=== PATIENT | male | born 1980 | race Caucasian/White ===

== ENCOUNTER 2024-07-17 16:24 | Emergency (ER) | payer BC, SELFPAY ==
--- NOTE | ~2024-07-17 | XR_ITS ---
XR hand LT min 3V DATE: 07/17/2024 16:46 INDICATION: Fifth digit pain TECHNIQUE: 4 views COMPARISON: None FINDINGS: There is a transverse fracture of the proximal shaft of the proximal phalanx of the fifth d igit with mild impaction and approximately 25% apex anterior angulation. No other fracture or dislocation, periosteal reaction or bone destruction is detected. IMPRESSION: Fracture of the proximal shaft of the proximal phalanx of the fifth digit Reviewed, dictated and finalized at location A.
--- NOTE | ~2024-07-17 | XR_ITS ---
XR hand LT min 3V DATE: 07/17/2024 18:32 INDICATION: Fracture of proximal phalanx of fifth finger; postreduction examination TECHNIQUE: 4 views COMPARISON: 07/17/2024 prereduction radiographs FINDINGS: Comminuted fracture of the base of proximal shaft of the proximal phalanx of the fifth digi t is noted. There is one cortical width anterior displacement and approximately 15 degrees apex anter ior angulation. IMPRESSION: 1 cortical width anterior displacement and 15 degrees apex anterior angulation at fractur e of base and proximal shaft of proximal phalanx of fifth digit Reviewed, dictated and finalized at location A. IMPRESSION: 1 cortical width anterior displacement and 15 degrees apex anterior angulation at fracture of base and proximal shaft of proximal phalanx of fifth digit
--- OUTSIDE RECORDS SUMMARY | 2024-07-17 16:26 | XMS_ITS | Encounter Summary ---
Author Organization [facility] Address [address] [facility] [place] [address] Phone Care Team Providers Care Truck Driving Name Role Phone Sarahy Geller APRN, CNP Primary Care P rovider Reason for Visit * Reason Comments Medication Refill Encounter Details Date Type Department Care Team (Late Contact Info) Description 10/06/2023 Refill [facility] [address] [place] [address] Sarahy Geller APRN, CNP [address] [place] [address] Medication Refill Social History Tobacco Use Types Packs/Day Years Used Date Smoking Tobacco: Never Smokeless Tobacco: Never Alcohol Use Standard Drinks/Week Comments Yes 0 (1 standard drink = 0.6 oz pur e alcohol) One to two times per week Sex and Gender Information Value Date Recorded Sex Assigned at Not on file Legal Sex Male 11:54 PM CDT Gender Identity Not on file Sexual Orientation Not on file documented as of this encounter Plan of Treatment Upcoming Encounters Date Type Department Care Team (Late Contact Info) Description 07/26/2024 10:00 AM CDT Office Visit [facility] - Primary Care - [place] [address] [place] [id number] Sarahy Geller APRN, VOCATIONAL TRAINING DIRECTOR [address] [place] [address] documented as of this encounter Visit Diagnoses Diagnosis Essential hypertension Unspecified essential hypertension documented in this encounter Care Teams Truck Driving Relationship Specialty Start Date End Date Sarahy Geller APRN, VOCATIONAL TRAINING DIRECTOR [address] [place] [address] PCP - General Advanced Practice Nurse 06/06/22 documented as of this encounter
--- OUTSIDE RECORDS SUMMARY | 2024-07-17 16:26 | XMS_ITS | Clinical Summary ---
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 Overview (05/15/2022): Note: Unchanged Encounters Date Type Department Care Team Description 07/13/2024 10:10 AM CDT Lab [facility] - Primary Care - [place] [address] [place] [id number] [facility] Discharge Disposition: Discharged to home or Selfcare 07/13/2024 Travel from Last 3 Months Immunizations Immunization Administration Dates Next Due TDAP Vaccine 01/11/2024 Social History Tobacco Use Types Packs/Day Years Used Date Smoking Tobacco: Never Smokeless Tobacco: Never Tobacco Cessation:Counseling Given: Not Answered Alcohol Use Standard Drinks/Week Comments Yes 0 (1 standard drink = 0.6 oz pur e alcohol) One to two times per week PHQ-2 Answer Date Recorded Total Score - Questions 1-9 0 12/26 Sex and Gender Information Value Date Recorded Sex Assigned at Not on file Legal Sex Male 11:54 PM CDT Gender Identity Not on file Sexual Orientation Not on file Last Filed Vital Signs Vital Sign Reading Time Taken Comments Blood Pressure 126/86 01/11/2024 11:19 AM CDT Pulse 79 01/11/2024 11:19 AM CDT Temperature 36.2 C (97.1 F) 01/11/2024 11:19 AM CDT Respiratory Rate 16 01/11/2024 11:19 AM CDT Oxygen Saturation 99% 01/11/2024 11:19 AM CDT Inhaled Oxygen Concentration - - Weight 90.7 kg (200 lb) 01/11/2024 11:19 AM CDT Height 175.3 cm (5' 9 ) 01/11/2024 11:19 AM CDT Body Mass Index 29.53 01/11/2024 11:19 AM CDT Plan of Treatment Upcoming Encounters Date Type Department Care Team (Late st Contact Info) Description 07/26/2024 10:00 AM CDT Office Visit [facility] - Primary Care - [place] [address] [place] [address] Sarahy Geller APRN, ANIMAL TRAINER [address] [place] [address] Health Maintenance Due Date Last Done Comments Colonoscopy 07/08/2023 Colorectal Cancer Screening 07/08/2023 SARS-COV-2 Immunization ( season) 2023 Influenza Immunization (#1) 2024 Postponed from 12/27/2023 (Patient Temporarily Declines) Td Immunization Every 10 Yea rs (Adults With 1 Tdap) 01/10/2034 01/11/2024 Respiratory Syncytial Virus (RSV) Immunization (Adult) (1 - 1-dose 75+ series) 2053 Hepatitis C Virus (HCV) Screening Completed 07/01/2023 DTaP/Tdap/Td Immunization Discontinued 01/11/2024 TdaP Immunization Discontinued 01/11/2024 Hepatitis B Immunization Discontinued Meningococcal Immunization (ACWY) Aged Out No longer eligible b ased on patient's age to complete this topic Pneumococcal Immunization Combined Aged Out No longer eligible b ased on patient's age to complete this topic Rotavirus Immunization Aged Out No lo nger eligible based on patient's age to complete this topic Procedures Procedure Name Priority Date/Time Associated Diagnosis Comments CBC WITH AUTO DIFFERENTIAL Routine 07/13/2024 10:02 AM CDT [facility] (Adult) HEMOGLOBIN A1C W/ ESTIMATED GLUCOSE Routine 07/13/2024 10:02 AM CDT [facility] (Adult) LIPID PANEL Routine 07/13/2024 10:02 AM CDT [facility] (Adult) CMP (COMPREHENSIVE METABOLIC PANEL) Routine 07/13/2024 10:02 AM CDT [facility] (Adult) COMPLETE BLOOD COUNT (CBC) WITH DIFF Routine 07/13/2024 10:02 AM CDT [facility] (Adult) HEPATITIS C ANTIBODY Routine 07/01/2023 10:43 AM TALENT SCOUT Preventative health care (Adult) from Last 3 Months or Most Recently Relevant to Health Maintenance Results * HEMOGLOBIN A1C W/ ESTIMATED GLUCOSE (07/13/2024 10:02 AM CDT) HGB-A1C 4.8 4.0 - 6.0 % 07/13/2024 1:01 PM CDT [facility] Est Average Glucose 91.1 mg/dL 07/13/2024 1:01 PM CDT [facility] Blood Venipuncture / Unknown 07/13/2024 10:02 AM CDT 07/13/2024 10:02 AM CDT Narrative [facility] - 07/13/2024 1:01 PM CDT HEMOGLOBIN A1C: DIABETIC PATIENTS: WELL-CONTROLLED: 6.2 - 7.0 INTERMEDIATE WELL-CONTROLLED: 7.0 - 9.0 POORLY-CONTROLLED: >9.0 Specimens containing greater than 5% of Hemoglobin F may result in lower than expected % HbA1C results. us Sarahy Geller APRN, CNP CHEMISTRY ORDER RIKKI Final Result [facility] [address] [place] [address] * (ABNORMAL) CBC WITH AUTO DIFFERENTIAL (07/13/2024 10:02 AM CDT) WBC 6.52 4.00 - 12.00 10(3)/mcL 07/13/2024 12:36 PM CDT [facility] RBC 5.08 4.40 - 5.80 10(6)/mcL 07/13/2024 12:36 PM CDT [facility] HEMOGLOBIN (HGB) 16.1 13.0 - 16.5 g/dL 07/13/2024 12:36 PM CDT [facility] HEMATOCRIT (HCT) 49.3 38.0 - 50.0 % 07/13/2024 12:36 PM CDT [facility] MCV 97.0(H) 82.0 - 96.0 fL 07/13/2024 12:36 PM CDT [facility] MCH 31.7 26.0 - 32.0 pg 07/13/2024 12:36 PM CDT [facility] MCHC 32.7 31.0 - 36.0 g/dL 07/13/2024 12:36 PM CDT [facility] PLATELET COUNT 298 140 - 440 10(3)/mcL 07/13/2024 12:36 PM CDT [facility] RDW 12.2 11.8 - 15.5 % 07/13/2024 12:36 PM CDT [facility] MPV 9.5 8.0 - 12.6 fL 07/13/2024 12:36 PM CDT [facility] NEUTROPHILS 58.2 40.0 - 68.0 % 07/13/2024 12:36 PM CDT [facility] LYMPHOCYTES 30.1 19.0 - 49.0 % 07/13/2024 12:36 PM CDT [facility] MONOCYTES 9.0 3.0 - 13.0 % 07/13/2024 12:36 PM CDT [facility] EOSINOPHILS 1.5 0.0 - 8.0 % 07/13/2024 12:36 PM CDT [facility] BASOPHILS 1.2(H) 0.0 - 1.0 % 07/13/2024 12:36 PM CDT [facility] ABSOLUTE NEUTROPHILS 3.79 1.40 - 5.30 10(3)/mcL 07/13/2024 12:36 PM CDT [facility] ABSOLUTE LYMPHOCYTES 1.96 0.90 - 3.30 10(3)/mcL 07/13/2024 12:36 PM CDT [facility] ABSOLUTE MONOCYTES 0.59 0.10 - 0.90 10(3)/[facility] 07/13/2024 12:36 PM CDT [facility] ABSOLUTE EOSINOPHIL 0.10 0.00 - 0.50 10(3)/[facility] 07/13/2024 12:36 PM CDT [facility] ABSOLUTE BASOPHILS 0.08 0.00 - 0.10 10(3)/[facility] 07/13/2024 12:36 PM CDT [facility] NRBC PER 100 WBC 0 07/14/19 25 12:36 PM CDT [facility] Blood Venipuncture / Unknown 07/13/2024 10:02 AM CDT 07/13/2024 10:02 AM CDT us Sarahy Geller APRN, CHRISTINA HEMATOLOGY PACO PICKARD Final Result [facility] [address] [place] [address] * LIPID PANEL (07/13/2024 10:02 AM CDT) [facility] Signature CHOLESTEROL 167 <200 mg/dL 07/13/2024 1:19 PM CDT [facility] TRIGLYCERIDES 94 <150 mg/dL 07/13/2024 1:19 PM CDT [facility] HDL CHOLESTEROL 59 >40 mg/dL 1:19 PM CDT [facility] LDL 89 <130 mg/dL 07/13/2024 1:19 PM CDT [facility] VLDL 19 10 - 50 mg/dL 07/13/2024 1:19 PM CDT [facility] CHOL/HDL RATIO 2.8 0.0 - 4.4 07/13/2024 1:19 PM CDT [facility] NON-HDL CHOLESTEROL 108 <130 mg/dL 07/13/2024 1:19 PM CDT [facility] IS THE PATIENT REQUIRED TO BE FASTING? Yes 07/13/2024 1:19 PM CDT [facility] HAS THE PATIENT BEEN FASTING? Yes 07/13/2024 1:19 PM CDT [facility] Blood Venipuncture / Unknown 07/13/2024 10:02 AM CDT 07/13/2024 10:02 AM CDT Sarahy Geller APRN, CNP CHEMISTRY ORDER RIKKI Final Result [facility] [address] [place] [address] * (ABNORMAL) CMP (COMPREHENSIVE METABOLIC PANEL) (07/13/2024 10:02 AM CDT) SODIUM 141 136 - 145 mmol/L 07/13/2024 1:19 PM CDT [facility] POTASSIUM 3.7 3.5 - 5.1 mmol/L 07/13/2024 1:19 PM CDT [facility] CHLORIDE 105 98 - 107 mmol/L 07/13/2024 1:19 PM CDT [facility] CO2, VENOUS 26 22 - 30 mmol/L 07/13/2024 1:19 PM CDT [facility] ANION GAP 13.7 <18.0 mmol/L 07/13/2024 1:19 PM CDT [facility] GLUCOSE 94 70 - 99 mg/dL 07/13/2024 1:19 PM CDT [facility] BUN 12 9 - 21 mg/dL 07/13/2024 1:19 PM CDT [facility] CREATININE, BLOOD 1.05 0.70 - 1.30 mg/dL 07/13/2024 1:19 PM CDT [facility] BUN/CREATININE RATIO 11(L) 12 - 20 ratio 07/13/2024 1:19 PM T [facility] TOTAL PROTEIN 6.9 6.0 - 8.0 g/dL 07/13/2024 1:19 PM T [facility] ALBUMIN 4.3 3.5 - 5.0 g/dL 07/13/2024 1:19 PM CDT [facility] A/G RATIO 1.7 1.0 - 2.2 07/13/2024 1:19 PM T [facility] CALCIUM 9.1 8.7 - 10.5 mg/dL 07/13/2024 1:19 PM T [facility] T BILI 0.8 0.2 - 1.2 mg/dL 07/13/2024 1:19 PM T [facility] SGOT (AST) 29 <43 U/L 07/13/2024 1:19 PM CDT [facility] SGPT (ALT) 32 <56 U/L 07/13/2024 1:19 PM CDT [facility] ALKALINE PHOSPHATASE 56 40 - 150 U/L 07/13/2024 1:19 PM T [facility] IS THE PATIENT REQUIRED TO BE FASTING? No 07/13/2024 1:19 PM CDT [facility] GFR, ESTIMATED >60 >=60 07/13/2024 1:19 PM CDT [facility] Comment: Creatinine Clearance is the preferred criteria for selecting drug dose adjustments in renally impaired patients. The GFR is provided as additional pertinent clinical information. GFR is reported in mL/min/1.73 sq m. Calculation based on the Chronic Kidney Disease Epidemiology Collaboration (CKD- EPI) equation refit without adjustment for race. GFR, EST. >60 >=60 025 1:19 PM CDT [facility] GFR, EST. NONAFRICAN >60 >=60 07/13/2024 1:19 PM CDT [facility] Blood Venipuncture / Unknown 07/13/2024 10:02 AM CDT 07/13/2024 10:02 AM CDT Sarahy Geller APRN, ANIMAL TRAINER CHEMISTRY ORDER RIKKI Final Result [facility] [address] [place] [address] * HEPATITIS C ANTIBODY (07/01/2023 10:43 AM TALENT SCOUT) hepatitis C antibody 0.16 <1 S/CO [facility] ARCH [id number] A 07/01/2023 11:53 PM TALENT SCOUT [facility] Comment: Signal/Cutoff ratio < 0.79 is Nondetected Signal/Cutoff ratio 0.80-0.99 is Grayzone Signal/Cutoff ratio > 0.99 is Detected Supplemental assays are recommended if signal/cutoff ratio is >/=1.00. Signal/cutoff ratio result >/= 5.00 is 97% predictive of positivity for recombinant immunoblot assay (RIBA) and will be reported to the [place] Department of Public Health as required. Blood Venipuncture / Unknown 07/01/2023 10:43 AM TALENT SCOUT 07/01/2023 10:43 AM TALENT SCOUT Sarahy Geller SOLAR ENERGY TECHNICIAN, ANIMAL TRAINER CHEMISTRY ORDER RIKKI Final Result [facility] [address] [place] [address], from Last 3 Months or Most Recently Relevant to Health Maintenance Insurance [facility] Care Teams Reel Stripper Relationship Specialty Start Date End Date Sarahy Geller APRN, ANIMAL TRAINER [address] [place] [address] PCP - General Advanced Practice Nurse 06/06/22
--- OUTSIDE RECORDS SUMMARY | 2024-07-17 16:26 | XMS_ITS ---
Care Plan - [facility] Created on: July 17, 2024 REY VONDA Titus : 1980 Sex: Male Author Organization [facility] Address [address] [place] [address] Phone Care Team Providers Care Detention Officer Name Role Phone ROSA HOOPER, LESLIE Spicer Primary Care Provider [phone]
--- OUTSIDE RECORDS SUMMARY | 2024-07-17 16:26 | XMS_ITS | Clinical Summary ---
Author Organization [facility] Address [address] [place] [address] Phone Care Team Providers Care Csw Name Role Phone ROSA HOOPER, LESLIE Spicer Primary Care Provider [phone] Reason for Visit and Chief Complaint SICK VISIT Problems Includes: Problems addressed during this encounter and other active Problems All Visits Onset Date Resolved Date Provider Condition S tatus Nicotine Dependence Cigarettes in Remission 07/27/2017 LESLIE LEE MD Active Last Documented On 07/27/2017 1:15PM ; [facility] Note: Unchanged - 1PPD 0905-2315 QUIT 20 07 Renal Sclerosis 05/09/2010 LESLIE PHILIPPE MD Active Last Documented On 05/09/2010 9:54PM ; [facility] Note: Unchanged Plan of Treatment No Plan of Treatment Recorded Assessments Includes: Assessments from this encounter No Assessments Recorded Medical Equipment - Implanted Devices Includes: Current Devices No Medical Equipment Recorded Medications Includes: Medications discussed during this encounter and other current Medications Current Medications (continue as prescribed) Cyclobenzaprine HCl 10MG Ora l Tablet 04/14/2018 Provider: LESLIE LEE MD Diagnosis: Muscle spasm of back as directed 1/2 - 1 TAB PO U P TO TID PRN MUSCLE SPASM Last Documented On 04/14/2018 9:45AM By FADUMO LEE MD ; [facility] Hydrocodone-Acetaminophen 5-325MG Oral Tablet 04/10/20 18 Provider: Diagnosis: Last Documented On 04/14/2018 9:13AM By ESTUARDO GONZALEZ ; [facility] Meloxicam 15MG Oral Tablet 04/10/2018 Provider: Diagnosis: Last Documented On 04/14/2018 9:13AM By ESTUARDO GONZALEZ ; [facility] Medications Administered Includes: Administered Medications from this encounter No Administered Medications Recorded Results Includes: Results discussed during this encounter No Results Recorded For Specified Dates History of Present Illness Includes: History of Present Illness from this encounter No History of Present Illness Recorded Social History No Social History Recorded - Smoking Status Unknown Medical History Includes: Medical History addressed during this encounter No Medical History Recorded Family History Includes: Family History addressed during this encounter No Family History Recorded Review of Systems Includes: Review of Systems from this encounter No Review of Systems Recorded Mental Status Includes: Mental Status from this encounter No Mental Status Recorded Functional Status Includes: Functional Status from this encounter No Functional Status Recorded Physical Exam Includes: Physical Exam from this encounter No Physical Exam Recorded Allergies Includes: Active Allergies No Known Allergies Insurance Includes: Active Insurance Policies Plan Name Member ID Group # Subscriber Relationship Effect benjamin Dates 1 - [facility] [id number] VONDA LE Self Clinical Notes Includes: Clinical Notes from this encounter No Clinical Notes Recorded
--- OUTSIDE RECORDS SUMMARY | 2024-07-17 16:26 | XMS_ITS ---
Author Organization [facility] Address [address] [place] [address] Phone Care Team Providers Care Tractor Distributor Name Role Phone LESLIE LEE MD Primary Care Provider [phone] Reason for Referral Date Encounter Description Provider Reason for Referral 05/27/18 REFERRAL LESLIE LEE MD Request C onsultation By Specialist 04/19/18 * PHONE CALL LESLIE LEE MD Request C onsultation By Allied Medical Professional Problems Includes: Active, inactive, and resolved Problems All Visits Onset Date Resolved Date Provider Condition S tatus Nicotine Dependence Cigarettes in Remission 07/27/2017 LESLIE LEE MD Active Last Documented On 07/27/2017 1:15PM ; [facility] Note: Unchanged - 1PPD [id number] QUIT 20 07 Overweight 05/09/2010 LESLIE LEE MD Inactive Last Documented On 07/27/2017 1:15PM ; [facility] Note: Unchanged Renal Sclerosis 05/09/2010 LESLIE PHILIPPE MD Active Last Documented On 05/09/2010 9:54PM ; [facility] Note: Unchanged Nicotine Dependence in Remission 05/09/2010 LESLIE LEE MD Inactive Last Documented On 07/27/2017 1:15PM ; [facility] Note: Unchanged TOBACCO USE DISORDER 07/12/2008 Unknown PETER AGUILAR PA-C Resolved Last Documented On 8 4:36PM ; [facility] Plan of Treatment Findings Encounter Date Ordered Transition in care, clinical summary provided REFERRAL with LESLIE LEE MD 05/27/2018 Last Documented On 9 10:49PM ; [facility] Requested request consultati on by specialist REFERRAL with LESLIE LEE MD 05/27/2018 Last Documented On 9 10:49PM ; [facility] Ordered Transition in care, clinical summary provided * PHONE CALL with LESLIE LEE MD 04/19/2018 Last Documented On 8 9:29AM ; [facility] Requested request consultati on by allied medical professional * PHONE CALL with LESLIE LEE MD 04/19/2018 Last Documented On 8 9:29AM ; [facility] Muscle relaxer prescribed fo r patient. Alternate ice and heat to relieve pain/inflammation EMERGENCY ROOM FOLLOW UP with LESLIE LEE MD 04/14/2018 Last Documented On 9 8:24PM ; [facility] Monitor Blood Pressure EMERGENCY ROOM FOLLOW UP with LESLIE LEE MD 04/14/2018 Last Documented On 9 8:24PM ; [facility] Ordered follow-up visit EMERGENCY ROOM FOLLOW UP with LESLIE LEE MD 04/14/2018 Last Documented On 9 8:24PM ; [facility] back at least once a year wi labs before the visit CHECK UP with LESLIE LEE MD 07/27/2017 Last Documented On 8 2:42PM ; [facility] Ordered Clinical summary pro vided to patient . Plan discussed and patient/parent/caregiver states understanding NEW PATIENT VISIT with PETER AGUILAR PA-C 07/20/2017 Last Documented On 8 4:56PM ; [facility] Ordered follow-up visit as n eeded with an office visit. OK to apply antibiotic ointment or Vasoline to wound to aide in healing. Discussed signs of infection--contact office if these arise. Call sooner if needed NEW PATIENT VISIT with PETER AGUILAR PA-C 07/20/2017 Last Documented On 8 4:56PM ; [facility] Pt will use anti-inflammator y to see if this helps with pain. Will call in a couple of weeks to tell us if it is better PROBLEM VISIT with LESLIE LEE MD 09/06/2013 Last Documented On 4 2:55PM ; [facility] Ordered return to the clinic if condition worsens or new symptoms arise PROBLEM VISIT with LESLIE LEE MD 09/06/2013 Last Documented On 4 2:55PM ; [facility] Ordered follow-up visit as n eeded with an office visit. PROBLEM VISIT with TEQUILA JAVED PA-C 05/24/2009 Last Documented On 0 9:17AM ; [facility] Referrals To Diagnosis Other [facility] [address] [facility] [address] [place] [address] - Radiculopathy, lumbar region Note: ORTHO SPINE/ NEUROSURG WHOEVER IS OK Last Documented On 9 7:15AM ; [facility] Instructions to patient Recommend diet and exercise at least 30 min three times per week Last Documented On 9 8:20PM ; [facility] Recommend diet and exercise at least 30 min three times per week Last Documented On 8 1:14PM ; [facility] Intervention and counseling on cessation of tobacco use encouraged cont success with cessation, rec quits. Offered help/assistance if needed Last Documented On 9 10:19AM ; [facility] Assessments Includes: Assessments for all patient encounters Findings Encounter Date Lumbar radiculopathy REFERRAL with LESLIE RAINEY MD 05/27/2018 Last Documented On 9 10:49PM ; [facility] Lumbosacral radiculopathy * PHONE CALL with JEOVANY LEE MD 04/19/2018 Last Documented On 8 9:29AM ; [facility] Lumbosacral radiculopathy EMERGENCY ROOM FOLLOW UP with LESLIE LEE MD 04/14/2018 Last Documented On 9 8:24PM ; [facility] Muscle spasm EMERGENCY ROOM FOLLOW UP with LINWOOD LEE MD 04/14/2018 Last Documented On 9 8:24PM ; [facility] Dependence on nicotine in ci garettes in remission 1PPD [id number] QUIT 2006 [F17.211 - Nicotine dependence, cigarettes, in remission] CHECK UP with LESLIE LEE MD 07/27/2017 Last Documented On 8 2:42PM ; [facility] Routine adult history and ph ysical (18-64 yrs) without abnormal findings CHECK UP with LESLIE LEE MD 07/27/2017 Last Documented On 8 2:42PM ; [facility] Open wound of the left middle finger NEW PATIENT VISIT with PETER AGUILAR PA-C 07/20/2017 Last Documented On 8 4:56PM ; [facility] Removal of sutures - sutures inserted at other facility NEW PATIENT VISIT with PETER AGUILAR PA-C 07/20/2017 Last Documented On 8 4:56PM ; [facility] Lumbago PROBLEM VISIT with LESLIE RAINEY MD 09/06/2013 Last Documented On 4 2:55PM ; [facility] Muscle spasm PROBLEM VISIT with LESLIE RAINEY MD 09/06/2013 Last Documented On 4 2:55PM ; [facility] Unspecified muscle strain PROBLEM VISIT with FADUMO LEE MD 09/06/2013 Last Documented On 4 2:55PM ; [facility] Nicotine dependence - in rem ission 25-28 PACK YR HX, QUIT IN 09. STILL ABSTINENT OF TOBACCO PROBLEM VISIT with LESLIE LEE MD 05/09/2010 Last Documented On 1 9:54PM ; [facility] Overweight PROBLEM VISIT with LESLIE RAINEY MD 05/09/2010 Last Documented On 1 9:54PM ; [facility] Renal sclerosis ATROPHIC KID LUIS CARLOS ON CATSCAN A INCIDENTAL FINDING. WILL RECHECK KIDNEY FXN AND WILL CHECK SONO TO LOOK FOR OTHER REASONS AND FOLLOW THIS UP PROBLEM VISIT with LESLIE LEE MD 05/09/2010 Last Documented On 1 9:54PM ; [facility] Chest pain PROBLEM VISIT with TEQUILA JAVED PA-C 05/24/2009 Last Documented On 0 9:17AM ; [facility] Disturbance in skin or paresthesia PROBLEM VISIT with TEQUILA JAVED PA-C 05/24/2009 Last Documented On 0 9:17AM ; [facility] Eustachian tube dysfunction PROBLEM VISIT with Hema JAVED PA-C 05/24/2009 Last Documented On 0 9:17AM ; [facility] Vertigo PROBLEM VISIT with TEQUILA Spicer TEGAN DOW 05/24/2009 Last Documented On 0 9:17AM ; [facility] Foreign body in the right auricle PROBLEM VISIT with ANNETTE DIANA PA-C 05/18/2009 Last Documented On 0 9:44AM ; [facility] Acute bronchitis -resolved 2 WK CK-UP with ANNETTE DIANA PA-C 12/25/2008 Last Documented On 9 11:59PM ; [facility] Instructions Includes: Instructions for all patient encounters Instructions to patient Recommend diet and exercise at least 30 min three times per week Last Documented On 9 8:20PM ; [facility] Recommend diet and exercise at least 30 min three times per week Last Documented On 8 1:14PM ; [facility] Intervention and counseling on cessation of tobacco use encouraged cont success with cessation, rec quits. Offered help/assistance if needed Last Documented On 9 10:19AM ; [facility] Medical Equipment - Implanted Devices Includes: Current and historical Devices No Medical Equipment Recorded Medications Includes: Current and historical Medications Current Medications (continue as prescribed) Cyclobenzaprine HCl 10MG Ora l Tablet 04/14/2018 Provider: LESLIE LEE MD Diagnosis: Muscle spasm of back as directed 1/2 - 1 TAB PO U P TO TID PRN MUSCLE SPASM Last Documented On 04/14/2018 9:45AM By FADUMO LEE MD ; [facility] Hydrocodone-Acetaminophen 5-325MG Oral Tablet 04/10/20 18 Provider: Diagnosis: Last Documented On 04/14/2018 9:13AM By ESTUARDO GONZALEZ ; [facility] Meloxicam 15MG Oral Tablet 04/10/2018 Provider: Diagnosis: Last Documented On 04/14/2018 9:13AM By ESTUARDO GONZALEZ ; [facility] Past Medications on file PredniSONE 10MG Oral Tablet 04/14/2018 - 04/26/2018 Provider: LESLIE LEE MD Diagnosis: Radiculopathy, lumbosacral region as directed 6 tabs day 1-34 tabs day 4-62 tabs day 7-91 tab day 10-12then stop Last Documented On 04/14/2018 9:46AM By FADUMO LEE MD ; [facility] predniSONE 10 MG OR TABS 07/28/2011 - 07/27/2017 Provi mihir: LESLIE LEE MD Diagnosis: 6 TAB DAY 1-34 TAB DAY 4-62 TAB DAY 7-91 TAB DAY 10-12 Last Documented On 07/27/2017 9:58AM By LADONNA GONZALEZ ; [facility] Nasonex 50 MCG/ACT NA SUSP 05/24/2009 - 07/27/2017 Provider: TEQUILA Alvarado Diagnosis: DYSFUNCT EUSTACH ROSITA TUBE 2 sprays per nostril once daily Last Documented On 07/27/2017 9:58AM By LADONNA GONZALEZ ; [facility] Bactrim DS 800-160 MG OR TABS 12/05/2008 - 07/27/2017 Provider: ANNETTE Alvarado Diagnosis: BRONCHITIS NOS Last Documented On 07/27/2017 9:58AM By LADONNA GONZALEZ ; [facility] Ventolin HFA 108 (90 Base) MCG/ACT IN AERS 12/05/2008 - 07/27/2017 Provider: ANNETTE Alvarado Diagnosis: BRONCHITIS NOS prn Last Documented On 07/27/2017 9:58AM By LADONNA GONZALEZ ; [facility] Medications Administered Includes: Administered Medications in patient's chart No Administered Medications Recorded Results Includes: Results from 07/18/2023 through 07/17/2024 No Results Recorded For Specified Dates History of Present Illness History of Present Illness not supported for this document type No History of Present Illness Recorded Social History Description Last Updated Smoking status : Former smoker 8 Last Documented On 8 2:42PM ; [facility] Drinking in moderation (2 drinks/day or fewer) 07/27/2017 Last Documented On 8 2:42PM ; [facility] Good exercise habits 07/27/2017 Last Documented On 8 2:42PM ; [facility] No caffeine use 07/27/2017 Last Documented On 8 2:42PM ; [facility] Not a current smoker 07/27/2017 Last Documented On 8 2:42PM ; [facility] Not using drugs 07/27/2017 Last Documented On 8 2:42PM ; [facility] Social history unchanged 07/27/2017 Last Documented On 8 2:42PM ; [facility] Medical History Includes: Medical History in patient's chart Description Last Updated No past medical/surgical history [use fo r free text] 07/27/2017 Last Documented On 8 2:42PM ; [facility] Family History Includes: Family History in patient's chart Description Last Updated DAD respiratory khanh lure, alcoholism, cirrhosis, prostate cancer age 60 ~MGM--DM II ~MGF--cancer ~PGM--Heart disease 07/27/2017 Last Documented On 8 2:42PM ; [facility] Maternal grandmother's history of diabet es mellitus 07/27/2017 Last Documented On 8 2:42PM ; [facility] Paternal history of family history of ca ncer PROSTATE 07/27/2017 Last Documented On 8 2:42PM ; [facility] Review of Systems Review of Systems not supported for this document type No Review of Systems Recorded Mental Status No Mental Status Recorded Functional Status No Functional Status Recorded Physical Exam Physical Exam not supported for this document type No Physical Exam Recorded Allergies Includes: Active, inactive, and resolved Allergies No Known Allergies Insurance Includes: Active Insurance Policies Plan Name Member ID Group # Subscriber Relationship Effect benjamin Dates 1 - [facility] [id number] VONDA LE Self Clinical Notes Includes: Signed Clinical Notes starting from 05/16/2022 No Clinical Notes Recorded
--- OUTSIDE RECORDS SUMMARY | 2024-07-17 16:26 | XMS_ITS | Clinical Summary ---
Author Organization [facility] Address [address] [place] [address] Phone Care Team Providers Care Financing Analyst Name Role Phone ROSA HOOPER, LESLIE Spicer Primary Care Provider [phone] Reason for Visit and Chief Complaint The Chief Complaint is: pt is here for [facility] follow up from 04/09 for right leg pain, foot was going numb and felt like he had a knife in his butt. pt states he is still having trouble getting out of bed. the hydrocodone and meloxicam that he was given at the ER did not help at all Problems Includes: Problems addressed during this encounter and other active Problems All Visits Onset Date Resolved Date Provider Condition S tatus Nicotine Dependence Cigarettes in Remission 07/27/2017 LESLIE LEE MD Active Last Documented On 07/27/2017 1:15PM ; [facility] Note: Unchanged - 1PPD [id number] QUIT 20 07 Renal Sclerosis 05/09/2010 LESLIE PHILIPPE MD Active Last Documented On 05/09/2010 9:54PM ; [facility] Note: Unchanged Plan of Treatment - Monitor Blood Pressure - Last Documented On 05/09/2018 8:24PM ; [facility] - Follow-up visit - Last Documented On 05/09/2018 8:24PM ; [facility] Muscle relaxer prescribed for patient. Alternate ice and heat to relieve pain/inflammation. - Last Documented On 05/09/2018 8:24PM ; [facility] Instructions to patient Recommend diet and exercise at least 30 min three times per week Last Documented On 9 8:20PM ; [facility] Assessments Includes: Assessments from this encounter Findings - Lumbosacral radiculopathy [M54.17 - Radiculopathy, lumbosacral region] - Last Documented On 05/09/2018 8:24PM ; [facility] - Muscle spasm [M62.830 - Muscle spasm of back] - Last Documented On 05/09/2018 8:24PM ; [facility] Instructions Includes: Instructions from this encounter Instructions to patient Recommend diet and exercise at least 30 min three times per week Last Documented On 9 8:20PM ; [facility] Medical Equipment - Implanted Devices Includes: Current Devices No Medical Equipment Recorded Medications Includes: Medications discussed during this encounter and other current Medications New / Renewed during this visit LESLIE LEE MD on 04/14/2018 Cyclobenzaprine HCl 10MG Ora l Tablet Provider: LESLIE LEE MD 30 day supply: 90 tablet, 0 refills Diagnosis: Muscle spasm of back as directed 1/2 - 1 TAB PO U P TO TID PRN MUSCLE SPASM Pharmacy: [facility]) - [address] [facility], [address] - Last Documented On 04/14/2018 9:45AM By FADUMO LEE MD ; [facility] PredniSONE 10MG Oral Tablet Provider: LESLIE LEE MD 12 day supply: 39 tablet, 0 refills Diagnosis: Radiculopathy, lumbosacral region as directed 6 tabs day 1-34 tabs day 4-62 tabs day 7-91 tab day 10-12then stop Pharmacy: [facility]) - [address] [facility], [address] - Last Documented On 04/14/2018 9:46AM By FADUMO LEE MD ; [facility] Current Medications (continue as prescribed) Hydrocodone-Acetaminophen 5-325MG Oral Tablet 04/10/20 18 Provider: Diagnosis: Last Documented On 04/14/2018 9:13AM By ESTUARDO GONZALEZ ; [facility] Meloxicam 15MG Oral Tablet 04/10/2018 Provider: Diagnosis: Last Documented On 04/14/2018 9:13AM By ESTUARDO GONZALEZ ; [facility] Medications Administered Includes: Administered Medications from this encounter No Administered Medications Recorded Vital Signs Includes: Vital Signs from this encounter Vital Name 04/14/2018 09:37A 04/14/2018 09: 09A Blood Pressure Standing (mmHg) 146/100 Blood Pressure Standing R 154/98 BP Cuff Size Regular Pulse Rate-Standing (bpm) 84 Respiration Rate (breaths/min) 20 Temp-Oral (F) 98.1 Height (in) 69 Weight (lb) 218 Body Mass Index (kg/m2) 32.2 Body Surface Area (m2) 2.1 Last Documented: On 04/14/2018 9:37AM ; [facility] On 04/14/2018 9:15AM ; [facility] Results Includes: Results discussed during this encounter No Results Recorded For Specified Dates History of Present Illness Includes: History of Present Illness from this encounter ASIYA LE is a 37 year old male. - Medication list reviewed. - Lower back pain radiating to the buttocks - Back stiffness - Muscle spasms triggered by minimal stimulation - No cardiovascular symptoms - No pulmonary symptoms - No gastrointestinal symptoms Social History Description Last Updated Smoking status : Former smoker 8 Last Documented On 8 9:09AM ; [facility] Drinking in moderation (2 drinks/day or fewer) 07/27/2017 Last Documented On 8 9:09AM ; [facility] Good exercise habits 07/27/2017 Last Documented On 8 9:09AM ; [facility] No caffeine use 07/27/2017 Last Documented On 8 9:09AM ; [facility] Not a current smoker 07/27/2017 Last Documented On 8 9:09AM ; [facility] Not using drugs 07/27/2017 Last Documented On 8 9:09AM ; [facility] Social history unchanged 07/27/2017 Last Documented On 8 9:09AM ; [facility] Procedures and Surgical History Includes: Procedures from this encounter Procedures Code Diagnosis Performing Provider Service L ocation Service Date plan of care reviewed and agreed to Last Documented On 8 9:09AM ; [facility] Reviewed & agreed to staff entries. Last Documented On 8 9:09AM ; [facility] Clinical summary provided to patient Last Documented On 8 9:09AM ; [facility] Medical History Includes: Medical History addressed during this encounter Description Last Updated No past medical/surgical history [use fo r free text] 07/27/2017 Last Documented On 8 9:09AM ; [facility] Family History Includes: Family History addressed during this encounter Description Last Updated DAD respiratory khanh lure, alcoholism, cirrhosis, prostate cancer age 60 ~MGM--DM II ~MGF--cancer ~PGM--Heart disease 07/27/2017 Last Documented On 8 9:09AM ; [facility] Maternal grandmother's history of diabet es mellitus 07/27/2017 Last Documented On 8 9:09AM ; [facility] Paternal history of family history of ca ncer PROSTATE 07/27/2017 Last Documented On 8 9:09AM ; [facility] Review of Systems Includes: Review of Systems from this encounter Systemic: No fever. Recent weight gain of 11lbs since last office visit. No edema. Head: No headache. Otolaryngeal: No ear symptoms, no nasal symptoms, and no throat symptoms. Cardiovascular: No chest pain or discomfort. Pulmonary: No shortness of breath. No cough. Gastrointestinal: Normal appetite and no heartburn. No nausea, no vomiting, no abdominal pain, and no diarrhea. Musculoskeletal: Muscle aches in lower right back and gluteus irlanda. No localized joint pain. Neurological: No dizziness. Psychological: No sleep disturbances. Mental Status Includes: Mental Status from this encounter Description Oriented to time, place, and person Functional Status Includes: Functional Status from this encounter No Functional Status Recorded Physical Exam Includes: Physical Exam from this encounter Allergies Includes: Active Allergies No Known Allergies Encounters Encounter Provider Location Date Check-In Time Check-Out Time Diagnosis EMERGENCY ROOM FOLLOW UP LESLIE LEE MD [facility] 018 9:03AM 9:46AM Radiculopathy of Lumbosacral Region,Muscle Spasm Insurance Includes: Active Insurance Policies Plan Name Member ID Group # Subscriber Relationship Effect benjamin Dates 1 - [facility] [id number] VONDA ROLLEMIDT Self Clinical Notes Includes: Clinical Notes from this encounter No Clinical Notes Recorded
--- OUTSIDE RECORDS SUMMARY | 2024-07-17 16:27 | XMS_ITS | Clinical Summary ---
Author Organization [facility] Address [address] [place] [address] Phone Care Team Providers Care Ironworker Machine Operator Name Role Phone ROSA HOOPER, LESLIE Spicer Primary Care Provider [phone] Reason for Referral Date Encounter Description Provider Reason for Referral 05/27/18 REFERRAL LESLIE LEE MD Request C onsultation By Specialist Reason for Visit and Chief Complaint REFERRAL Problems Includes: Problems addressed during this encounter and other active Problems All Visits Onset Date Resolved Date Provider Condition S tatus Nicotine Dependence Cigarettes in Remission 07/27/2017 LESLIE LEE MD Active Last Documented On 07/27/2017 1:15PM ; [facility] Note: Unchanged - 1PPD 3831-5501 QUIT 20 07 Renal Sclerosis 05/09/2010 LESLIE PHILIPPE MD Active Last Documented On 05/09/2010 9:54PM ; [facility] Note: Unchanged Plan of Treatment - Transition in care, clinical summary provided - Last Documented On 05/27/2018 10:49PM ; [facility] - Request consultation by specialist - Last Documented On 05/27/2018 10:49PM ; [facility] Referrals To Diagnosis Other [facility] [address] [address] - Radiculopathy, lumbar region Note: ORTHO SPINE/ NEUROSURG WHOEVER IS OK Last Documented On 9 7:15AM ; [facility] Assessments Includes: Assessments from this encounter Findings - Lumbar radiculopathy [M54.16 - Radiculopathy, lumbar region] - Last Documented On 05/27/2018 10:49PM ; [facility] Medical Equipment - Implanted Devices Includes: Current [...] 04/14/2018 9:45AM By FADUMO LEE MD ; [facility] Hydrocodone-Acetaminophen 5-325MG Oral Tablet 04/10/20 Provider: Diagnosis: Last Documented On 04/14/2018 9:13AM By ESTUARDO GONZALEZ ; [facility] Meloxicam 15MG Oral Tablet 04/10/2018 Provider: Diagnosis: Last Documented On 04/14/2018 9:13AM By ESTUARDO GONZALEZ ; [facility] Medications Administered Includes: Administered Medications from this encounter No Administered Medications Recorded Results Includes: Results discussed during this encounter No Results Recorded For Specified Dates History of Present Illness Includes: History of Present Illness from this encounter No History of Present Illness Recorded Social History No Social History Recorded - Smoking Status Unknown Procedures and Surgical History Includes: Procedures from this encounter Procedures Code Diagnosis Performing Provider Service Location Service Date Clinical summary transmitted to referring provider electronically Last Documented On 9 10:48PM ; [facility] Medical History Includes: Medical History addressed during [...] Location Date Check-In Time Check-Out Time Diagnosis REFERRAL LESLIE LEE MD [facility] [place] 05/27/19 19 10:45PM 11:59PM Lumbar Radiculopathy Insurance Includes: Active Insurance Policies Plan Name Member ID Group # Subscriber Relationship Effect benjamin Dates 1 - [facility] [id number] VONDA Qureshi STAMIROSLAVAMIDT Self Clinical Notes Includes: Clinical Notes from this encounter No Clinical Notes Recorded
--- OUTSIDE RECORDS SUMMARY | 2024-07-17 16:27 | XMS_ITS | Clinical Summary ---
Author Organization [facility] Address [address] [place] [address] Phone Care Team Providers Care Valve Lapper Name Role Phone LESLIE LEE MD Primary Care Provider [phone] Reason for Referral Date Encounter Description Provider Reason for Referral 04/19/18 * PHONE CALL LESLIE LEE MD Request C onsultation By Allied Medical Professional Reason for Visit and Chief Complaint * PHONE CALL Problems Includes: Problems addressed during this encounter and other active Problems All Visits Onset Date Resolved Date Provider Condition S tatus Nicotine Dependence Cigarettes in Remission 07/27/2017 LESLIE LEE MD Active Last Documented On 07/27/2017 1:15PM ; [facility] Note: Unchanged - 1PPD 2054-0872 QUIT 20 07 Renal Sclerosis 05/09/2010 LESLIE PHILIPPE MD Active Last Documented On 05/09/2010 9:54PM ; [facility] Note: Unchanged Plan of Treatment - Transition in care, clinical summary provided - Last Documented On 04/19/2018 9:29AM ; [facility] - Request consultation by allied medical professional - Last Documented On 04/19/2018 9:29AM ; [facility] Assessments Includes: Assessments from this encounter Findings - Lumbosacral radiculopathy [M54.17 - Radiculopathy, lumbosacral region] - Last Documented On 04/19/2018 9:29AM ; [facility] Medical Equipment - Implanted Devices Includes: [...] 04/14/2018 9:45AM By FADUMO LEE MD ; [facility] Hydrocodone-Acetaminophen 5-325MG Oral Tablet 04/10/20 Provider: Diagnosis: Last Documented On 04/14/2018 9:13AM By ESTUARDO GONZALEZ ; [facility] Meloxicam 15MG Oral Tablet 04/10/2018 Provider: Diagnosis: Last Documented On 04/14/2018 9:13AM By ESTUARDO GONZALEZ ; [facility] Medications Administered Includes: Administered Medications from this [...] to referring provider electronically Last Documented On 9:29AM ; [facility] Medical History Includes: Medical History [...] Location Date Check-In Time Check-Out Time Diagnosis * PHONE CALL LESLIE LEE MD 04/19/20 9:13AM 11:59PM Radiculopathy of Lumbosacral Region Insurance Includes: Active Insurance Policies Plan Name Member ID Group # Subscriber Relationship Effect benjamin Dates 1 - [facility] [id number] VONDA LE Self Clinical Notes Includes: Clinical Notes from this encounter No Clinical Notes Recorded
--- OUTSIDE RECORDS SUMMARY | 2024-07-17 16:27 | XMS_ITS | Clinical Summary ---
Author Organization [facility] Address [address] [place] [address] Phone Care Team Providers Care Griddle Attendant Name Role Phone ROSA HOOPER, LESLIE Spicer Primary Care Provider [phone] Reason for Visit and Chief Complaint CANCELLED Problems Includes: Problems addressed during this encounter and other active Problems All Visits Onset Date Resolved Date Provider Condition S tatus Nicotine Dependence Cigarettes in Remission 07/27/2017 LESLIE LEE MD Active Last Documented On 07/27/2017 1:15PM ; [facility] Note: Unchanged - 1PPD 7690-2431 QUIT 20 07 Renal Sclerosis 05/09/2010 LESLIE PHILIPPE MD Active Last Documented On 05/09/2010 9:54PM ; [facility] Note: Unchanged Plan of Treatment [...] 04/14/2018 9:45AM By FADUMO LEE MD ; [facility] Hydrocodone-Acetaminophen 5-325MG Oral Tablet 04/10/20 18 Provider: Diagnosis: Last Documented On 04/14/2018 9:13AM By ESTUARDO GONZALEZ ; [facility] Meloxicam 15MG Oral Tablet 04/10/2018 Provider: Diagnosis: Last Documented On 04/14/2018 9:13AM By ESTUARDO GONZALEZ ; [facility] Medications Administered Includes: Administered Medications [...] Location Date Check-In Time Check-Out Time Diagnosis CANCELLED LESLIE LEE MD [facility] 8 2:00PM 11:59PM Insurance Includes: Active Insurance Policies Plan Name Member ID Group # Subscriber Relationship Effect benjamin Dates 1 - [facility] [id number] VONDA LE Self Clinical Notes Includes: Clinical Notes from this encounter No Clinical Notes Recorded
--- OUTSIDE RECORDS SUMMARY | 2024-07-17 16:29 | XMS_ITS | Clinical Summary ---
Author Organization [facility] Address [address] [place] [address] Phone Care Team Providers Care Pharmaceutical Specialty Representative Name Role Phone ROSA HOOPER, LESLIE Spicer Primary Care Provider [phone] Reason for Visit and Chief Complaint The Chief Complaint is: pt is here for [facility] ER follow up from 04/09 for right [...] Active Last Documented On 07/27/2017 1:15PM ; [facility] Note: Unchanged - 1PPD 0222-6328 QUIT 20 07 Renal Sclerosis 05/09/2010 LESLIE PHILIPPE MD Active Last Documented On 05/09/2010 9:54PM ; [facility] Note: Unchanged Plan of Treatment - Monitor Blood Pressure - Last Documented On 05/09/2018 8:24PM ; [facility] - Follow-up visit - Last Documented On 05/09/2018 8:24PM ; [facility] Muscle relaxer prescribed for patient. Alternate ice and heat to relieve pain/inflammation. - Last Documented On 05/09/2018 8:24PM ; [facility] Instructions to patient Recommend diet and exercise at least 30 min three times per week Last Documented On 9 8:20PM ; [facility] Assessments Includes: Assessments from this encounter Findings - Lumbosacral radiculopathy [M54.17 - Radiculopathy, lumbosacral region] - Last Documented On 05/09/2018 8:24PM ; [facility] - Muscle spasm [M62.830 - Muscle spasm of back] - Last Documented On 05/09/2018 8:24PM ; [facility] Instructions Includes: Instructions from this encounter Instructions to patient Recommend diet and exercise at least 30 min three times per week Last Documented On 9 8:20PM ; [facility] Medical Equipment - Implanted Devices Includes: [...] P TO TID PRN MUSCLE SPASM Pharmacy: [facility]) - [address] [facility], [address] - Last Documented On 04/14/2018 9:45AM By FADUMO LEE MD ; [facility] PredniSONE 10MG Oral Tablet Provider: LESLIE LEE MD 12 day supply: 39 tablet, 0 refills Diagnosis: Radiculopathy, lumbosacral region as directed 6 tabs day 1-34 tabs day 4-62 tabs day 7-91 tab day 10-12then stop Pharmacy: [facility]) - [address] [facility], [address] - Last Documented On 04/14/2018 9:46AM By FADUMO LEE MD ; [facility] Current Medications (continue as prescribed) Hydrocodone-Acetaminophen 5-325MG Oral Tablet 04/10/20 18 Provider: Diagnosis: Last Documented On 04/14/2018 9:13AM By ESTUARDO GONZALEZ ; [facility] Meloxicam 15MG Oral Tablet 04/10/2018 Provider: Diagnosis: Last Documented On 04/14/2018 9:13AM By ESTUARDO GONZALEZ ; [facility] Medications Administered Includes: Administered [...] 2.1 Last Documented: On 04/14/2018 9:37AM ; [facility] On 04/14/2018 9:15AM ; [facility] Results Includes: Results discussed during [...] 8 Last Documented On 8 9:09AM ; [facility] Drinking in moderation (2 drinks/day or fewer) 07/27/2017 Last Documented On 8 9:09AM ; [facility] Good exercise habits 07/27/2017 Last Documented On 8 9:09AM ; [facility] No caffeine use 07/27/2017 Last Documented On 8 9:09AM ; [facility] Not a current smoker 07/27/2017 Last Documented On 8 9:09AM ; [facility] Not using drugs 07/27/2017 Last Documented On 8 9:09AM ; [facility] Social history unchanged 07/27/2017 Last Documented On 8 9:09AM ; [facility] Procedures and Surgical History Includes: Procedures from this encounter Procedures Code Diagnosis Performing Provider Service L ocation Service Date plan of care reviewed and agreed to Last Documented On 8 9:09AM ; [facility] Reviewed & agreed to staff entries. Last Documented On 8 9:09AM ; [facility] Clinical summary provided to patient Last Documented On 8 9:09AM ; [facility] Medical History Includes: Medical History addressed during this encounter Description Last Updated No past medical/surgical history [use fo r free text] 07/27/2017 Last Documented On 8 9:09AM ; [facility] Family History Includes: Family History addressed during this encounter Description Last Updated DAD respiratory khanh lure, alcoholism, cirrhosis, prostate cancer age 60 ~MGM--DM II ~MGF--cancer ~PGM--Heart disease 07/27/2017 Last Documented On 8 9:09AM ; [facility] Maternal grandmother's history of diabet es mellitus 07/27/2017 Last Documented On 8 9:09AM ; [facility] Paternal history of family history of ca ncer PROSTATE 07/27/2017 Last Documented On 8 9:09AM ; [facility] Review of Systems Includes: Review of [...] EMERGENCY ROOM FOLLOW UP LESLIE LEE MD [facility] 018 9:03AM 9:46AM Radiculopathy of Lumbosacral Region,Muscle Spasm Insurance Includes: Active Insurance Policies Plan Name Member ID Group # Subscriber Relationship Effect benjamin Dates 1 - [facility] [id number] VONDA ROLLEMIDT Self Clinical Notes Includes: Clinical Notes from this encounter No Clinical Notes Recorded
--- OUTSIDE RECORDS SUMMARY | 2024-07-17 16:29 | XMS_ITS | Clinical Summary ---
Author Organization [facility] Address [address] [place] [address] Phone Care Team Providers Care Global Category Manager Name Role Phone ROSA HOOPER, LESLIE Spicer Primary Care Provider [phone] Reason for Visit and Chief Complaint CANCELLED Problems Includes: Problems addressed during this encounter and other active Problems All Visits Onset Date Resolved Date Provider Condition S tatus Nicotine Dependence Cigarettes in Remission 07/27/2017 LESLIE LEE MD Active Last Documented On 07/27/2017 1:15PM ; [facility] Note: Unchanged - 1PPD 7219-5967 QUIT 20 07 Renal Sclerosis 05/09/2010 LESLIE PHILIPPE MD Active Last Documented On 05/09/2010 9:54PM ; [facility] Note: Unchanged Plan of Treatment No [...] 04/14/2018 9:45AM By FADUMO LEE MD ; [facility] Hydrocodone-Acetaminophen 5-325MG Oral Tablet 04/10/20 18 Provider: Diagnosis: Last Documented On 04/14/2018 9:13AM By ESTUARDO GONZALEZ ; [facility] Meloxicam 15MG Oral Tablet 04/10/2018 Provider: Diagnosis: Last Documented On 04/14/2018 9:13AM By ESTUARDO GONZALEZ ; [facility] Medications Administered Includes: Administered Medications [...] Check-Out Time Diagnosis CANCELLED LESLIE LEE MD [facility] 8 2:00PM 11:59PM Insurance Includes: Active Insurance Policies Plan Name Member ID Group # Subscriber Relationship Effect benjamin Dates 1 - [facility] [id number] VONDA LE Self Clinical Notes Includes: Clinical Notes from this encounter No Clinical Notes Recorded
--- OUTSIDE RECORDS SUMMARY | 2024-07-17 16:29 | XMS_ITS ---
Care Plan - [facility] Created on: July 17, 2024 REY VONDA Titus : 1980 Sex: Male Author Organization [facility] Address [address] [place] [address] Phone Care Team Providers Care Photograph Finisher Name Role Phone ROSA HOOPER, LESLIE Spicer Primary Care Provider [phone]
--- OUTSIDE RECORDS SUMMARY | 2024-07-17 16:29 | XMS_ITS | Clinical Summary ---
Author Organization [facility] Address [address] [place] [address] Phone Care Team Providers Care College Intern Name Role Phone LESLIE LEE MD Primary Care Provider [phone] Reason for Referral Date Encounter Description Provider [...] Active Last Documented On 07/27/2017 1:15PM ; [facility] Note: Unchanged - 1PPD 4894-3201 QUIT 20 07 Renal Sclerosis 05/09/2010 LESLIE PHILIPPE MD Active Last Documented On 05/09/2010 9:54PM ; [facility] Note: Unchanged Plan of Treatment - Transition in care, clinical summary provided - Last Documented On 04/19/2018 9:29AM ; [facility] - Request consultation by allied medical professional - Last Documented On 04/19/2018 9:29AM ; [facility] Assessments Includes: Assessments from this encounter Findings - Lumbosacral radiculopathy [M54.17 - Radiculopathy, lumbosacral region] - Last Documented On 04/19/2018 9:29AM ; [facility] Medical Equipment - Implanted Devices Includes: Current [...] 04/14/2018 9:45AM By FADUMO LEE MD ; [facility] Hydrocodone-Acetaminophen 5-325MG Oral Tablet 04/10/20 Provider: Diagnosis: Last Documented On 04/14/2018 9:13AM By ESTUARDO GONZALEZ ; [facility] Meloxicam 15MG Oral Tablet 04/10/2018 Provider: Diagnosis: Last Documented On 04/14/2018 9:13AM By ESTUARDO GONZALEZ ; [facility] Medications Administered Includes: Administered Medications from this [...] provider electronically Last Documented On 9:29AM ; [facility] Medical History Includes: Medical History [...] Subscriber Relationship Effect benjamin Dates 1 - [facility] [id number] VONDA LE Self Clinical Notes Includes: Clinical Notes from this encounter No Clinical Notes Recorded
--- OUTSIDE RECORDS SUMMARY | 2024-07-17 16:29 | XMS_ITS | Clinical Summary ---
Author Organization [facility] Address [address] [place] [address] Phone Care Team Providers Care Administrative Technician Name Role Phone ROSA HOOPER, LESLIE Spicer Primary Care Provider [phone] Reason for Referral Date Encounter Description Provider [...] Active Last Documented On 07/27/2017 1:15PM ; [facility] Note: Unchanged - 1PPD 4623-2616 QUIT 20 07 Renal Sclerosis 05/09/2010 LESLIE PHILIPPE MD Active Last Documented On 05/09/2010 9:54PM ; [facility] Note: Unchanged Plan of Treatment - Transition in care, clinical summary provided - Last Documented On 05/27/2018 10:49PM ; [facility] - Request consultation by specialist - Last Documented On 05/27/2018 10:49PM ; [facility] Referrals To Diagnosis Other [facility] [address] [address] - Radiculopathy, lumbar region Note: ORTHO SPINE/ NEUROSURG WHOEVER IS OK Last Documented On 9 7:15AM ; [facility] Assessments Includes: Assessments from this encounter Findings - Lumbar radiculopathy [M54.16 - Radiculopathy, lumbar region] - Last Documented On 05/27/2018 10:49PM ; [facility] Medical Equipment - Implanted Devices Includes: Current [...] 04/14/2018 9:45AM By FADUMO LEE MD ; [facility] Hydrocodone-Acetaminophen 5-325MG Oral Tablet 04/10/20 Provider: Diagnosis: Last Documented On 04/14/2018 9:13AM By ESTUARDO GONZALEZ ; [facility] Meloxicam 15MG Oral Tablet 04/10/2018 Provider: Diagnosis: Last Documented On 04/14/2018 9:13AM By ESTUARDO GONZALEZ ; [facility] Medications Administered Includes: Administered Medications from this [...] electronically Last Documented On 9 10:48PM ; [facility] Medical History Includes: Medical History addressed during [...] Check-Out Time Diagnosis REFERRAL LESLIE LEE MD [facility] 05/27/19 19 10:45PM 11:59PM Lumbar Radiculopathy Insurance Includes: Active Insurance Policies Plan Name Member ID Group # Subscriber Relationship Effect benjamin Dates 1 - [facility] [id number] VONDA Qureshi STAMIROSLAVAMIDT Self Clinical Notes Includes: Clinical Notes from this encounter No Clinical Notes Recorded
--- OUTSIDE RECORDS SUMMARY | 2024-07-17 16:29 | XMS_ITS | Clinical Summary ---
Author Organization [facility] Address [address] [place] [address] Phone Care Team Providers Care Shafting Worker Name Role Phone ROSA HOOPER, LESLIE Spicer Primary Care Provider [phone] Reason for Visit and Chief Complaint SICK VISIT Problems Includes: Problems addressed during this encounter and other active Problems All Visits Onset Date Resolved Date Provider Condition S tatus Nicotine Dependence Cigarettes in Remission 07/27/2017 LESLIE LEE MD Active Last Documented On 07/27/2017 1:15PM ; [facility] Note: Unchanged - 1PPD 4001-2783 QUIT 20 07 Renal Sclerosis 05/09/2010 LESLIE PHILIPPE MD Active Last Documented On 05/09/2010 9:54PM ; [facility] Note: Unchanged Plan of Treatment No [...] 04/14/2018 9:45AM By FADUMO LEE MD ; [facility] Hydrocodone-Acetaminophen 5-325MG Oral Tablet 04/10/20 18 Provider: Diagnosis: Last Documented On 04/14/2018 9:13AM By ESTUARDO GONZALEZ ; [facility] Meloxicam 15MG Oral Tablet 04/10/2018 Provider: Diagnosis: Last Documented On 04/14/2018 9:13AM By ESTUARDO GONZALEZ ; [facility] Medications Administered Includes: Administered [...] Subscriber Relationship Effect benjamin Dates 1 - [facility] [id number] VONDA LE Self Clinical Notes Includes: Clinical Notes from this encounter No Clinical Notes Recorded
--- OUTSIDE RECORDS SUMMARY | 2024-07-17 16:29 | XMS_ITS ---
Author Organization [facility] Address [address] [place] [address] Phone Care Team Providers Care Agent Spa Desk Name Role Phone LESLIE LEE MD Primary Care Provider [phone] Reason for Referral Date Encounter Description Provider [...] Active Last Documented On 07/27/2017 1:15PM ; [facility] Note: Unchanged - 1PPD [id number] QUIT 20 07 Overweight 05/09/2010 LESLIE LEE MD Inactive Last Documented On 07/27/2017 1:15PM ; [facility] Note: Unchanged Renal Sclerosis 05/09/2010 LESLIE PHILIPPE MD Active Last Documented On 05/09/2010 9:54PM ; [facility] Note: Unchanged Nicotine Dependence in Remission 05/09/2010 LESLIE LEE MD Inactive Last Documented On 07/27/2017 1:15PM ; [facility] Note: Unchanged TOBACCO USE DISORDER 07/12/2008 Unknown PETER AGUILAR PA-C Resolved Last Documented On 8 4:36PM ; [facility] Plan of Treatment Findings Encounter Date Ordered Transition in care, clinical summary provided REFERRAL with LESLIE LEE MD 05/27/2018 Last Documented On 9 10:49PM ; [facility] Requested request consultati on by specialist REFERRAL with LESLIE LEE MD 05/27/2018 Last Documented On 9 10:49PM ; [facility] Ordered Transition in care, clinical summary provided * PHONE CALL with LESLIE LEE MD 04/19/2018 Last Documented On 8 9:29AM ; [facility] Requested request consultati on by allied medical professional * PHONE CALL with LESLIE LEE MD 04/19/2018 Last Documented On 8 9:29AM ; [facility] Muscle relaxer prescribed fo r patient. Alternate ice and heat to relieve pain/inflammation EMERGENCY ROOM FOLLOW UP with LESLIE LEE MD 04/14/2018 Last Documented On 9 8:24PM ; [facility] Monitor Blood Pressure EMERGENCY ROOM FOLLOW UP with LESLIE LEE MD 04/14/2018 Last Documented On 9 8:24PM ; [facility] Ordered follow-up visit EMERGENCY ROOM FOLLOW UP with LESLIE LEE MD 04/14/2018 Last Documented On 9 8:24PM ; [facility] back at least once a year wi labs before the visit CHECK UP with LESLIE LEE MD 07/27/2017 Last Documented On 8 2:42PM ; [facility] Ordered Clinical summary pro vided to patient . Plan discussed and patient/parent/caregiver states understanding NEW PATIENT VISIT with PETER AGUILAR PA-C 07/20/2017 Last Documented On 8 4:56PM ; [facility] Ordered follow-up visit as n eeded with an office visit. OK to apply antibiotic ointment or Vasoline to wound to aide in healing. Discussed signs of infection--contact office if these arise. Call sooner if needed NEW PATIENT VISIT with PETER AGUILAR PA-C 07/20/2017 Last Documented On 8 4:56PM ; [facility] Pt will use anti-inflammator y to see if this helps with pain. Will call in a couple of weeks to tell us if it is better PROBLEM VISIT with LESLIE LEE MD 09/06/2013 Last Documented On 4 2:55PM ; [facility] Ordered return to the clinic if condition worsens or new symptoms arise PROBLEM VISIT with LESLIE LEE MD 09/06/2013 Last Documented On 4 2:55PM ; [facility] Ordered follow-up visit as n eeded with an office visit. PROBLEM VISIT with TEQUILA JAVED PA-C 05/24/2009 Last Documented On 0 9:17AM ; [facility] Referrals To Diagnosis Other [facility] [address] [facility] [address] [place] [address] - Radiculopathy, lumbar region Note: ORTHO SPINE/ NEUROSURG WHOEVER IS OK Last Documented On 9 7:15AM ; [facility] Instructions to patient Recommend diet and exercise at least 30 min three times per week Last Documented On 9 8:20PM ; [facility] Recommend diet and exercise at least 30 min three times per week Last Documented On 8 1:14PM ; [facility] Intervention and counseling on cessation of tobacco use encouraged cont success with cessation, rec quits. Offered help/assistance if needed Last Documented On 9 10:19AM ; [facility] Assessments Includes: Assessments for all patient encounters Findings Encounter Date Lumbar radiculopathy REFERRAL with LESLIE RAINEY MD 05/27/2018 Last Documented On 9 10:49PM ; [facility] Lumbosacral radiculopathy * PHONE CALL with JEOVANY LEE MD 04/19/2018 Last Documented On 8 9:29AM ; [facility] Lumbosacral radiculopathy EMERGENCY ROOM FOLLOW UP with LESLIE LEE MD 04/14/2018 Last Documented On 9 8:24PM ; [facility] Muscle spasm EMERGENCY ROOM FOLLOW UP with LINWOOD LEE MD 04/14/2018 Last Documented On 9 8:24PM ; [facility] Dependence on nicotine in ci garettes in remission 1PPD [id number] QUIT 2006 [F17.211 - Nicotine dependence, cigarettes, in remission] CHECK UP with LESLIE LEE MD 07/27/2017 Last Documented On 8 2:42PM ; [facility] Routine adult history and ph ysical (18-64 yrs) without abnormal findings CHECK UP with LESLIE LEE MD 07/27/2017 Last Documented On 8 2:42PM ; [facility] Open wound of the left middle finger NEW PATIENT VISIT with PETER AGUILAR PA-C 07/20/2017 Last Documented On 8 4:56PM ; [facility] Removal of sutures - sutures inserted at other facility NEW PATIENT VISIT with PETER AGUILAR PA-C 07/20/2017 Last Documented On 8 4:56PM ; [facility] Lumbago PROBLEM VISIT with LESLIE RAINEY MD 09/06/2013 Last Documented On 4 2:55PM ; [facility] Muscle spasm PROBLEM VISIT with LESLIE RAINEY MD 09/06/2013 Last Documented On 4 2:55PM ; [facility] Unspecified muscle strain PROBLEM VISIT with FADUMO LEE MD 09/06/2013 Last Documented On 4 2:55PM ; [facility] Nicotine dependence - in rem ission 25-28 PACK YR HX, QUIT IN 09. STILL ABSTINENT OF TOBACCO PROBLEM VISIT with LESLIE LEE MD 05/09/2010 Last Documented On 1 9:54PM ; [facility] Overweight PROBLEM VISIT with LESLIE RAINEY MD 05/09/2010 Last Documented On 1 9:54PM ; [facility] Renal sclerosis ATROPHIC KID LUIS CARLOS ON CATSCAN A INCIDENTAL FINDING. WILL RECHECK KIDNEY FXN AND WILL CHECK SONO TO LOOK FOR OTHER REASONS AND FOLLOW THIS UP PROBLEM VISIT with LESLIE LEE MD 05/09/2010 Last Documented On 1 9:54PM ; [facility] Chest pain PROBLEM VISIT with TEQUILA JAVED PA-C 05/24/2009 Last Documented On 0 9:17AM ; [facility] Disturbance in skin or paresthesia PROBLEM VISIT with TEQUILA JAVED PA-C 05/24/2009 Last Documented On 0 9:17AM ; [facility] Eustachian tube dysfunction PROBLEM VISIT with Hema JAVED PA-C 05/24/2009 Last Documented On 0 9:17AM ; [facility] Vertigo PROBLEM VISIT with TEQUILA Spicer TEGAN DOW 05/24/2009 Last Documented On 0 9:17AM ; [facility] Foreign body in the right auricle PROBLEM VISIT with ANNETTE DIANA PA-C 05/18/2009 Last Documented On 0 9:44AM ; [facility] Acute bronchitis -resolved 2 WK CK-UP with ANNETTE DIANA PA-C 12/25/2008 Last Documented On 9 11:59PM ; [facility] Instructions Includes: Instructions for all patient encounters Instructions to patient Recommend diet and exercise at least 30 min three times per week Last Documented On 9 8:20PM ; [facility] Recommend diet and exercise at least 30 min three times per week Last Documented On 8 1:14PM ; [facility] Intervention and counseling on cessation of tobacco use encouraged cont success with cessation, rec quits. Offered help/assistance if needed Last Documented On 9 10:19AM ; [facility] Medical Equipment - Implanted Devices Includes: [...] FADUMO LEE MD ; [facility] Hydrocodone-Acetaminophen 5-325MG Oral Tablet 04/10/20 18 Provider: Diagnosis: Last Documented On 04/14/2018 9:13AM By ESTUARDO GONZALEZ ; [facility] Meloxicam 15MG Oral Tablet 04/10/2018 Provider: Diagnosis: Last Documented On 04/14/2018 9:13AM By ESTUARDO GONZALEZ ; [facility] Past Medications on file PredniSONE 10MG Oral Tablet 04/14/2018 - 04/26/2018 Provider: LESLIE LEE MD Diagnosis: Radiculopathy, lumbosacral region as directed 6 tabs day 1-34 tabs day 4-62 tabs day 7-91 tab day 10-12then stop Last Documented On 04/14/2018 9:46AM By FADUMO LEE MD ; [facility] predniSONE 10 MG OR TABS 07/28/2011 - 07/27/2017 Provi mihir: LESLIE LEE MD Diagnosis: 6 TAB DAY 1-34 TAB DAY 4-62 TAB DAY 7-91 TAB DAY 10-12 Last Documented On 07/27/2017 9:58AM By LADONNA GONZALEZ ; [facility] Nasonex 50 MCG/ACT NA SUSP 05/24/2009 - 07/27/2017 Provider: TEQUILA Alvarado Diagnosis: DYSFUNCT EUSTACH ROSITA TUBE 2 sprays per nostril once daily Last Documented On 07/27/2017 9:58AM By LADONNA GONZALEZ ; [facility] Bactrim DS 800-160 MG OR TABS 12/05/2008 - 07/27/2017 Provider: ANNETTE Alvarado Diagnosis: BRONCHITIS NOS Last Documented On 07/27/2017 9:58AM By LADONNA GONZALEZ ; [facility] Ventolin HFA 108 (90 Base) MCG/ACT IN AERS 12/05/2008 - 07/27/2017 Provider: ANNETTE Alvarado Diagnosis: BRONCHITIS NOS prn Last Documented On 07/27/2017 9:58AM By LADONNA GONZALEZ ; [facility] Medications Administered Includes: Administered Medications in patient's chart No Administered Medications Recorded Results Includes: Results from 07/18/2023 through 07/17/2024 No Results Recorded For Specified Dates History of Present Illness History of Present Illness not supported for this document type No History of Present Illness Recorded Social History Description Last Updated Smoking status : Former smoker 8 Last Documented On 8 2:42PM ; [facility] Drinking in moderation (2 drinks/day or fewer) 07/27/2017 Last Documented On 8 2:42PM ; [facility] Good exercise habits 07/27/2017 Last Documented On 8 2:42PM ; [facility] No caffeine use 07/27/2017 Last Documented On 8 2:42PM ; [facility] Not a current smoker 07/27/2017 Last Documented On 8 2:42PM ; [facility] Not using drugs 07/27/2017 Last Documented On 8 2:42PM ; [facility] Social history unchanged 07/27/2017 Last Documented On 8 2:42PM ; [facility] Medical History Includes: Medical History in patient's chart Description Last Updated No past medical/surgical history [use fo r free text] 07/27/2017 Last Documented On 8 2:42PM ; [facility] Family History Includes: Family History in patient's chart Description Last Updated DAD respiratory khanh lure, alcoholism, cirrhosis, prostate cancer age 60 ~MGM--DM II ~MGF--cancer ~PGM--Heart disease 07/27/2017 Last Documented On 8 2:42PM ; [facility] Maternal grandmother's history of diabet es mellitus 07/27/2017 Last Documented On 8 2:42PM ; [facility] Paternal history of family history of ca ncer PROSTATE 07/27/2017 Last Documented On 8 2:42PM ; [facility] Review of Systems Review of Systems [...] Subscriber Relationship Effect benjamin Dates 1 - [facility] [id number] VONDA LE Self Clinical Notes Includes: Signed Clinical Notes starting from 05/16/2022 No Clinical Notes Recorded
[2024-07-17 16:30] VITALS: BP 100/82; PULSE 103; RESP 20; TEMP 36.9; O2SAT 98
--- NOTE | 2024-07-17 16:44 | ED.GENADULT ---
HPI - General Adult General Chief complaint: Extremity Injury, Upper Stated complaint: left hand injury Source: patient Mode of arrival: ambulatory Limitations: no limitations History of Present Illness HPI narrative: Patient presents for evaluation of left hand pain. Symptom onset last night. He indicates he was intoxicated but does not remember sustaining an injury. His current pain level is 10/10 in severity. He is right hand dominant. He has not taken any medication to assist with his symptoms. When I probe for additional details to the initiating event, he states he has no recollection of the incident whatsoever. He has numbness in the middle and distal phalanges of the affected digit. Related Data Home Medications ?Medication ?Instructions ?Recorded ?Confirmed ?Last Taken ?Type lisinopril 20 tablet 07/17/24 Unknown History mg-hydrochlorothiazide 12.5 mg tablet Allergies Allergy/AdvReac Type Severity Reaction Status Date / Time No Known Allergies Allergy Verified 03/01/19 16:18 Review of Systems Review of Systems: CONSTITUTIONAL: Denies fever, chills, or sweats. EYES: Denies visual changes, redness, or discharge. ENT: Denies rhinorrhea, congestion, sore throat, or otalgia. CARDIOVASCULAR: Denies chest pain, palpitations, or edema. RESPIRATORY: Denies cough or dyspnea. GASTROINTESTINAL: Denies abdominal pain, nausea, vomiting, or diarrhea. GENITOURINARY: Denies dysuria or hematuria. SKIN: Denies rash or itching. MUSCULOSKELETAL: Reports left hand pain NEUROLOGIC: Denies headache, numbness, dizziness, or weakness. PSYCHIATRIC: Denies anxiety or depression. [facility] Past Medical History Medical History (Updated 07/17/24 @ 19:04 by Oleksandr Song, YOON, ) No pertinent past medical history Surgical History Surgical History No pertinent past surgical history Family History Family History Mother Family history non-contributory Social History Social History (Updated 07/17/24 @ 16:[address], ) Alcohol intake: current Gender identity (if verbalized by the patient): Male Sexual Orientation (if Verbalized by the Patient): Straight or Heterosexual Spiritual care concerns: No Exam Narrative: GENERAL: Well-appearing, well-nourished, and in no acute distress. HEAD: Normocephalic, atraumatic. EYES: PERRLA and EOMI. ENT: Nares clear, no rhinorrhea or epistaxis. Mucous membranes moist. Oropharynx without tonsillar hypertrophy exudate or other lesions. Bilateral TMs pearly plata nonbulging NECK: Supple. No adenopathy or masses. No carotid bruits or JVD CHEST: Clear to auscultation. No respiratory distress. No wheezes rales or rhonchi HEART: Regular rate and rhythm. No murmur heard. Normal peripheral pulses. ABDOMEN: Soft, nontender, nondistended, normal active bowel sounds. EXTREMITIES: Decreased range of motion of the 5th digit left hand. There is tenderness over the distal left 5th metacarpal, and throughout the 5th digit SKIN: Fifth digit of the left hand is ecchymotic NEURO: No focal deficits. Alert and oriented x3. PSYCH: Normal mood and affect. Course Course Emergency Course: This is a 44-year-old male who presented for evaluation of an injury to the 5th digit left hand. He had evidence of a proximal phalanx fracture with angulation. I contacted on-call orthopedic, Dr. Stephen, to see whether reduction was necessary prior to follow up appt outpatient. He indicated that while we could attempt, it would not be required. He recommended the patient follow-up outpatient for further evaluation with Hand surgery. Offered to call over to [place] to speak with the hand surgeon. Patient preferred to be evaluated in [place] and will call hand surgeon tomorrow for follow up. Attempted to call Dr. Mendoza but was unable to reach him. We discussed risks versus benefits of attempts at reduction. Patient was agreeable to reduction. Digital block was performed. Reduction performed with some improvement in angulation. Pt tolerated well. He was placed in ulnar gutter splint. His liver this with him and assures us that she is a nurse and she can assist with follow up. Pt feels comfortable calling hand surgeon tomorrow. He was provided with a sling. Paper script for [employer] provided as electronic transmission failed. He will go to the ER for intractable pain or worsening symptoms. Level of Care: Express Care Visit Vital Signs Vital signs: Vital Signs Temperature 36.9 C 07/17/24 16:30 Pulse Rate 103 H 07/17/24 16:30 Respiratory Rate 20 07/17/24 16:30 Blood Pressure 100/82 07/17/24 16:30 Pulse Oximetry 98 07/17/24 16:30 Oxygen Delivery Room Air 07/17/24 16:30 Temperature 36.9 C 07/17/24 16:30 Pulse Rate 103 H 07/17/24 16:30 Respiratory Rate 20 07/17/24 16:30 Blood Pressure 100/82 07/17/24 16:30 Pulse Oximetry 98 07/17/24 16:30 Oxygen Delivery Room Air 07/17/24 16:30 Procedures Orthopedic Fracture Reduction Fracture #1: Fracture Reduction date: 07/17/24 Fracture Reduction time: 17:55 Time Out Performed: Yes Side: left Fracture Reduction Location: finger Analgesia: nerve block Pre-Procedure Neuro Vascular Exam: normal Technique: direct manipulation and traction/counter-traction Post-reduction neuro exam: intact Post-reduction vascular exam: intact Splint Applied: Yes Orthopedic Splinting/Casting Injury #1: Splinting/Casting Date: 07/17/24 Splinting/Casting Time: 18:20 Side: left Upper Extremity Injury Location: finger Upper Extremity Immobilizer: ulnar gutter Splint: customized in ED OCL: ulnar gutter Pre-Procedure Neuro Vascular Exam: normal Post-Procedure Neuro Vascular Exam: normal Medical Decision Making Vital Signs Vital Signs: Vital Signs Temperature 36.9 C 07/17/24 16:30 Pulse Rate 103 H 07/17/24 16:30 Respiratory Rate 20 07/17/24 16:30 Blood Pressure 100/82 07/17/24 16:30 Pulse Oximetry 98 07/17/24 16:30 Oxygen Delivery Room Air 07/17/24 16:30 Temperature 36.9 C 07/17/24 16:30 Pulse Rate 103 H 07/17/24 16:30 Respiratory Rate 20 07/17/24 16:30 Blood Pressure 100/82 07/17/24 16:30 Pulse Oximetry 98 07/17/24 16:30 Oxygen Delivery Room Air 07/17/24 16:30 Imaging Data Radiologist's impression: XR hand LT min 3V DATE: 07/17/2024 16:46 INDICATION: Fifth digit pain TECHNIQUE: 4 views COMPARISON: None FINDINGS: There is a transverse fracture of the proximal shaft of the proximal phalanx of the fifth digit with mild impaction and approximately 25% apex anterior angulation. No other fracture or dislocation, periosteal reaction or bone destruction is detected. IMPRESSION: Fracture of the proximal shaft of the proximal phalanx of the fifth digit Discharge Plan Discharge Clinical Impression: Closed fracture of proximal phalanx of digit of hand Patient Disposition: Home, Self-Care Condition: Stable Instructions: Antibiotic Form, Finger Fracture (ED) Additional Instructions: Please call hand surgeon tomorrow for close follow-up. If you have worsening pain, or develops numbness, cool temperature in the affected digit or the digit changes in color please go to the Emergency Department Patient Language: Greek Prescriptions: New hydrocodone-acetaminophen 5-325 mg tablet 1 - 2 tablet PO Q6H PRN (Reason: pain) Qty: 20 0RF No Action lisinopril-hydrochlorothiazide 20-12.5 mg tablet benzonatate [Tessalon Perles] 100 mg capsule 100 mg PO TID Qty: 30 0RF albuterol sulfate 90 mcg/actuation HFA aerosol inhaler 2 puff INHALATION QID Qty: 6.7 0RF Follow-up/Referrals: Brock Mendoza MD [Physician] - Time of Disposition: 19:04
== END 2024-07-17 19:17 | disposition home or self-care (01) ==
PROVIDERS: Emergency Provider Nurse Practitioner
DX: S62.617A Displaced fracture of proximal phalanx of left little finger, initial encounter for closed fracture (principal); X58.XXXA Exposure to other specified factors, initial encounter
CPT/HCPCS: 26725; 73130; 99214; A4565; G0463; J2003